=== PATIENT | female | born 1970 | race African-American/Black ===

== ENCOUNTER 2017-12-05 21:33 | Emergency (ER) | payer SELFPAY ==
[2017-12-05] MEDS: NAPROXEN 500 MG TABLET PO (23:25)
[2017-12-05] MEDS: HYDROcodone/APAP 5/325MG 1 TAB TABLET PO (23:25)
== END 2017-12-05 23:40 | disposition home or self-care (01) ==
LOC: ER 23:40
DX: S83.91XA Sprain of unspecified site of right knee, initial encounter (principal); E11.9 Type 2 diabetes mellitus without complications; I10 Essential (primary) hypertension; F17.210 Nicotine dependence, cigarettes, uncomplicated; W19.XXXA Unspecified fall, initial encounter; Y93.89 Activity, other specified; Y92.89 Other specified places as the place of occurrence of the external cause; Y99.8 Other external cause status
CPT/HCPCS: 29505; 73564; 99284